=== PATIENT | female | born 1995 | race Caucasian/White ===

== ENCOUNTER 2016-11-02 01:30 | Emergency (ER) | payer MEDICAID ==
[~2016-11-02] VITALS: Ht 147.3 cm; Wt 59.0 kg
--- NOTE | 2016-11-02 02:33 | NUR ---
PT BIBSELF, C/O LEFT EAR PAIN S/P ATTEMPTING TO REMOVE CARTILAGE PIERCING. PT AOX3 RR EVEN AND UNLABORED. NO SOB NOTED. NAD NOTED. NO NVD AT THIS TIME. PT GOWNED WAITING FOR MD JON.
[2016-11-02] MEDS ORDERED: LET SOLN TOPICAL 8 ML UDC TP ONE ×2 (02:54→03:00)
--- NOTE | 2016-11-02 03:13 | NUR ---
CALLED LAB FOR BOOM MASTER.
--- NOTE | 2016-11-02 03:45 | NUR ---
DR. ALCANTAR AT BEDSIDE TO REMOVED LEFT EAR PIERCING.
[2016-11-02] MEDS ORDERED: LEVOFLOXACIN (750 MG) 750 MG TABLET PO SCH (04:00)
[2016-11-02] MEDS ORDERED: IBUPROFEN 400 MG TABLET PO ONE (04:00)
[2016-11-02] MEDS ORDERED: LEVOFLOXACIN (750 MG) 750 MG TABLET ONE (04:01)
[2016-11-02] MEDS ORDERED: IBUPROFEN 400 MG TABLET ONE (04:01)
--- NOTE | 2016-11-02 04:50 | NUR ---
Patient discharged to home in stable condition. Written and verbal after care instructions given. Patient verbalizes understanding of instruction. ambulatory with a steady gait
[2016-11-02 04:54] VITALS: BP 124/68
== END 2016-11-02 04:55 | disposition home or self-care (01) ==
LOC: ER 01:32
DX: T16.2XXA Foreign body in left ear, initial encounter (principal); X58.XXXA Exposure to other specified factors, initial encounter; Y93.89 Activity, other specified; Y92.89 Other specified places as the place of occurrence of the external cause; Y99.8 Other external cause status
CPT/HCPCS: 84703; 99284; A4606; A6402 ×2; Z7610

== ENCOUNTER 2019-11-02 20:24 | Emergency (ER) | payer MEDICAID ==
[~2019-11-02] VITALS: Ht 149.9 cm; Wt 59.0 kg
[2019-11-02 20:49] VITALS: BP 133/87
== END 2019-11-02 21:21 | disposition home or self-care (01) ==
LOC: ER 20:28
DX: H66.91 Otitis media, unspecified, right ear (principal); M26.69 Other specified disorders of temporomandibular joint; H61.23 Impacted cerumen, bilateral

== ENCOUNTER 2019-11-08 21:53 | Emergency (ER) | payer MEDICAID ==
[~2019-11-08] VITALS: Ht 149.9 cm; Wt 59.0 kg
[2019-11-08 21:53] VITALS: BP 145/94
--- NOTE | 2019-11-08 22:21 | NUR ---
BRODERICK CHAVIS AT BEDSIDE
--- NOTE | 2019-11-08 22:28 | NUR ---
Patient discharged to home in stable condition. Written and verbal after care instructions given. Patient verbalizes understanding of instruction.
== END 2019-11-08 22:29 | disposition home or self-care (01) ==
LOC: ER 21:55
DX: H60.91 Unspecified otitis externa, right ear (principal)

== ENCOUNTER 2024-05-02 15:00 | Emergency (ER) | payer MEDICAID ==
[~2024-05-02] VITALS: Ht 149.9 cm; Wt 57.6 kg
[2024-05-02 15:28] VITALS: BP 140/97; TEMP 98.6
[2024-05-02 18:31] VITALS: O2SAT 99
== END 2024-05-02 18:31 | disposition home or self-care (01) ==
LOC: ER 15:17
DX: J06.9 Acute upper respiratory infection, unspecified (principal)